=== PATIENT | male | born 1955 | race African-American/Black ===

== ENCOUNTER 2021-04-27 10:58 | Outpatient (CLI) | payer OTHER | END 2021-04-27 10:59 | disposition home or self-care (01) | LOC: BICRAD 10:58 | PROVIDERS: ATTEND Family Medicine | DX: R05.9 Cough, unspecified (principal) | CPT/HCPCS: 71046 ==

== ENCOUNTER 2021-07-06 07:42 | Outpatient (CLI) | payer OTHER | END 2021-07-06 07:43 | disposition home or self-care (01) | LOC: TBSIIMAG 07:42 | PROVIDERS: ATTEND Urology | DX: C61 Malignant neoplasm of prostate (principal) | CPT/HCPCS: 72197; 82565 ==